=== PATIENT | male | born 1980 | race Caucasian/White ===

== ENCOUNTER 2017-09-01 14:38 | Emergency (ER) | payer MEDICAID, OTHER ==
[2017-09-01] MEDS: LIDOCAINE 1%/EPI (MDV) 50 ML INJ INJ (16:08)
[2017-09-01] MEDS: DIPHTH/TET/ACEL PERTUSS (ADULT) 0.5 ML VIAL IM* (16:12)
== END 2017-09-01 17:05 | disposition home or self-care (01) ==
LOC: FTE 14:38
DX: S41.111A Laceration without foreign body of right upper arm, initial encounter (principal); W26.8XXA Contact with other sharp object(s), not elsewhere classified, initial encounter; Y92.9 Unspecified place or not applicable
CPT/HCPCS: 12002; 90471; 90715; 99283-25

== ENCOUNTER 2017-09-03 13:21 | Emergency (ER) | payer MEDICAID | END 2017-09-03 13:36 | disposition home or self-care (01) | LOC: E/R 13:36 | DX: Z48.01 Encounter for change or removal of surgical wound dressing (principal) | CPT/HCPCS: 99281; Z7502 ==